=== PATIENT | female | born 1955 | race Caucasian/White ===

== ENCOUNTER → 2023-09-26 09:56 | Outpatient (REF) | payer MEDICARE, OTHER, SELFPAY | LOC: WDC 09:56 | PROVIDERS: ATTENDING PHYSICIAN Family Medicine | DX: Z12.31 Encounter for screening mammogram for malignant neoplasm of breast (principal); E78.00 Pure hypercholesterolemia, unspecified; Z82.49 Family history of ischemic heart disease and other diseases of the circulatory system; M81.0 Age-related osteoporosis without current pathological fracture | CPT/HCPCS: 75571; 77063; 77067; 77080 ==

== ENCOUNTER → 2024-02-15 08:54 | Outpatient (REF) | payer MEDICARE, OTHER, SELFPAY | LOC: RCS 08:54 | PROVIDERS: ATTENDING PHYSICIAN Physician Assistant; FAMILY PHYSICIAN Family Medicine | DX: R55 Syncope and collapse (principal); E78.2 Mixed hyperlipidemia; Z82.49 Family history of ischemic heart disease and other diseases of the circulatory system | CPT/HCPCS: 93017; 93350 ==

== ENCOUNTER → 2024-03-25 07:08 | Outpatient (REF) | payer MEDICARE, OTHER, SELFPAY | LOC: RAD 07:08 | PROVIDERS: ATTENDING PHYSICIAN Family Medicine | DX: Z13.6 Encounter for screening for cardiovascular disorders (principal); Z82.49 Family history of ischemic heart disease and other diseases of the circulatory system | CPT/HCPCS: 76770 ==

== ENCOUNTER → 2024-05-08 15:32 | Outpatient (REF) | payer MEDICARE, OTHER, SELFPAY | LOC: RAD 15:32 | PROVIDERS: ATTENDING PHYSICIAN Physician Assistant | DX: R55 Syncope and collapse (principal); E78.2 Mixed hyperlipidemia; Z82.49 Family history of ischemic heart disease and other diseases of the circulatory system | CPT/HCPCS: 93880 ==

== ENCOUNTER → 2024-11-05 09:36 | Outpatient (REF) | payer MEDICARE, OTHER, SELFPAY | LOC: HWRAD 09:36 | PROVIDERS: ATTENDING PHYSICIAN Family Medicine | DX: R05.3 Chronic cough (principal) | CPT/HCPCS: 71046 ==